=== PATIENT | female | born 1985 | race Two or more races ===

== ENCOUNTER 2023-09-27 15:22 | Emergency (ER) | payer OTHER ==
[~2023-09-27] VITALS: Ht 165.1 cm; Wt 74.4 kg
[2023-09-27] MEDS: SULFAMETH/TRIMETH 800/160 MG 1 UDTAB TABLET PO ONE (16:55)
[2023-09-27] MEDS: SILVER SULFADIAZINE CREAM 25 GM TUBE TP ONE (16:55)
[2023-09-27] MEDS ORDERED: SILVER SULFADIAZINE CREAM 25 GM TUBE ONE (17:02)
[2023-09-27] MEDS ORDERED: SULFAMETH/TRIMETH 800/160 MG 1 UDTAB TABLET ONE (17:02)
[2023-09-27] MEDS ORDERED: SULF1TAB48 PO (17:03)
[2023-09-27 17:22] VITALS: BP 125/75; TEMP 98; O2SAT 100
== END 2023-09-27 17:23 | disposition home or self-care (01) ==
LOC: ER 15:34
DX: L03.113 Cellulitis of right upper limb (principal)